=== PATIENT | male | born 1995 | race Caucasian/White ===

== ENCOUNTER 2020-09-08 15:30 | Emergency (ER) | payer BC ==
[~2020-09-08] VITALS: Wt 88.5 kg
[2020-09-08] MEDS ORDERED: IBU800 MG PO (15:56)
[2020-09-08] MEDS ORDERED: TOBRAMYCIN 5 ML5 M1 OPH (15:56)
== END 2020-09-08 16:20 | disposition home or self-care (01) ==
LOC: ED 15:30
DX: S05.01XA Injury of conjunctiva and corneal abrasion without foreign body, right eye, initial encounter (principal); W50.0XXA Accidental hit or strike by another person, initial encounter; Y93.89 Activity, other specified; Y92.89 Other specified places as the place of occurrence of the external cause; Y99.8 Other external cause status